=== PATIENT | female | born 1945 | race Caucasian/White ===

== ENCOUNTER 2016-09-22 17:35 | Inpatient (IN) | payer MEDICARE, OTHER ==
[~2016-09-22 17:35] MED LIST: ASPIR 8181 MG; ASPIRIN325 MG; ASPIRIN81 M1 PO; CATAPRES0.1 M1 PO; CATAPRES0.2 MG; CATAPRES0.3 M1 PO; CEPHALEXIN500 MG; COMBIVENT RESPIM4 G1 INH; COREG25 M1 PO; COREG6.25 M1 PO; COZAAR50 M1 PO; CPAP; FISH OIL 1,0001 EA10 PO; GLIPIZIDE5 MG; GLUCOPHAGE500 MG; GLUCOSE1 EACH PO; HUMALOG100 UNIT/2 SQ; HYDRALAZINE HCL50 M1 PO; LANTUS SOL100 UNIT/1 SC; LANTUS100 UNITS/ SC; LASIX40 M1 PO; LEVEMIR100 UNITS/ SC; LEVOFLOXACIN500 M1 PO; LIPITOR10 MG; LIPITOR20 M1 PO; LYRICA25 MG/CAP NG; LYRICA75 MG/CAP PO; MUPIROCIN15 G2 TOP; NORCO 5-325 TA1 EACH PO; NORVASC10 M2 PO; NORVASC10 MG; NOVOLIN N100 UNIT/2 SC; NOVOLOG FL100 UNIT/2 SC; NOVOLOG100 UNIT/2 SQ; PLAVIX75 MG; RENVELA800 M1 PO; SPIRONOLACTONE25 M2 PO; SYMBICORT 160-1 PUFF INH; TYLENOL325 M2 PO
[2016-09-22] MEDS ORDERED: TYLENOL325 M2 PO (18:46)
[2016-09-22] MEDS ORDERED: ASPIRIN EC325 M1 PO (18:47)
[2016-09-22] MEDS ORDERED: LIPITOR80 M1 PO (18:48)
[2016-09-22] MEDS ORDERED: COREG6.25 M1 PO (18:48)
[2016-09-22] MEDS ORDERED: FEOSOL325 M1 PO (18:50)
[2016-09-22] MEDS ORDERED: LASIX40 M1 PO (18:52)
[2016-09-22] MEDS ORDERED: FISH OIL 11000 MG/CA PO (18:53)
[2016-09-22] MEDS ORDERED: MEGACE400 MG/11 PO (18:54)
[2016-09-22] MEDS ORDERED: LYRICA100 MG/CAP PO (18:54)
[2016-09-22] MEDS ORDERED: PLAVIX75 M1 PO (18:55)
[2016-09-22] MEDS ORDERED: RENVELA800 M1 PO (18:56)
[2016-09-22] MEDS ORDERED: ADALAT CC30 M1 PO (18:59)
[2016-09-22] MEDS ORDERED: LANTUS SOL100 UNIT/1 SC (19:00)
[2016-09-22] MEDS ORDERED: NOVOLIN N100 UNIT/2 SC ×3 (19:03→19:06)
[2016-09-22] MEDS ORDERED: NOVOLOG100 UNITS/ SC (19:10)
[2016-09-22] MEDS ORDERED: GENTAMICIN SUL3.5 GM TOP (19:11)
[2016-09-22] MEDS ORDERED: PREDNISOLONE ACE5 M1 RIGHT EYE (19:13)
[2016-09-22] MEDS ORDERED: COMBIGAN EYE DRO5 M1 RIGHT EYE (19:14)
[2016-09-22] MEDS ORDERED: XALATAN2.5 M1 RIGHT EYE (19:16)
[2016-09-22 22:20] LABS: BASO % 0.1 % (0-2); EOS % 3.2 % (0-7); EOSINOPHIL ABSOLUTE COUNT 0.2 tho/cmm (0.0-0.7); HCT-HEMATOCRIT 28.6 % (34.0-49.0); HGB-HEMOGLOBIN 9.4 gm/dl (12.0-15.5); IMMATURE GRANULOCYTES ABSOLUTE 0.02 tho/cmm (0-0.03); IMMATURE GRANULOCYTES PERCENT 0.3 % (0-0.3); LYMPH ABSOLUTE COUNT 0.8 tho/cmm (0.8-4.5); MCHC MEAN CORPUSCULAR HGB CONC 32.9 % (32.0-36.0); MCV (MEAN CELL VOLUME) 100.4 fl (82.0-96.0); MEAN PLATELET VOLUME 10.5 cmc (9.4-12.4); MONO % 9.2 % (0-12); MONOCYTE ABSOLUTE COUNT 0.7 tho/cmm (0.0-1.2); NEUTROPHIL ABSOLUTE COUNT 5.9 tho/cmm (1.6-8.0); NEUTROPHIL-AUTOMATED 5.9 tho/cmm (1.6-8.0); NEUTROPHILS % 77.2 % (40-80); PLATELET COUNT 114 tho/cmm (150-450); RED BLOOD COUNT 2.85 mil/cmm (4.00-5.20); RED CELL DISTRIBUTION WIDTH 15.4 % (12.4-16.4); WHITE BLOOD COUNT 7.6 tho/cmm (4.0-10.0)
[2016-09-22 22:42] LABS: ALB/GLOB RATIO 0.7 (0.8-2.0); ALBUMIN 2.5 g/dl (3.5-5.0); ALKALINE PHOSPHATASE 98 U/L (33-138); ALT/SGPT 11 U/L (12-78); ANION GAP 15 mmol/L (0-20); AST/SGOT 14 U/L (10-40); BILIRUBIN,TOTAL 0.3 mg/dl (0-1.5); BLOOD UREA NITROGEN 57 mg/dl (6-24); C-REACTIVE PROTEIN 2.9 mg/dl (0-0.9); CALCIUM 8.5 mg/dl (8.5-10.5); CARBON DIOXIDE-VENOUS 28 mmol/L (22-32); CHLORIDE 104 mmol/l (96-110); GLUCOSE 101 mg/dL (70-110); POTASSIUM 3.5 mmol/L (3.7-5.1); SODIUM 143 mmol/L (135-145); eGFR VALUE FOR BLACK 7 mL/Min
[2016-09-22 22:59] LABS: PROCALCITONIN 0.31 ng/ml (0.05-0.09)
[2016-09-22 23:29] LABS: ESR-ERYTHROCYTE SED RATE 131 mm/hr (0-30)
[2016-09-23 04:11] LABS: BASO % 0.3 % (0-2); EOS % 4.2 % (0-7); EOSINOPHIL ABSOLUTE COUNT 0.3 tho/cmm (0.0-0.7); HCT-HEMATOCRIT 30.5 % (34.0-49.0); HGB-HEMOGLOBIN 9.9 gm/dl (12.0-15.5); IMMATURE GRANULOCYTES ABSOLUTE 0.03 tho/cmm (0-0.03); IMMATURE GRANULOCYTES PERCENT 0.4 % (0-0.3); LYMPH % 12.8 % (20-45); MCH (MEAN CORPUSCULAR HGB) 32.8 pg (28.0-32.0); MCHC MEAN CORPUSCULAR HGB CONC 32.5 % (32.0-36.0); MEAN PLATELET VOLUME 10.9 cmc (9.4-12.4); MONO % 8.3 % (0-12); MONOCYTE ABSOLUTE COUNT 0.7 tho/cmm (0.0-1.2); NEUTROPHIL ABSOLUTE COUNT 5.8 tho/cmm (1.6-8.0); NEUTROPHIL-AUTOMATED 5.8 tho/cmm (1.6-8.0); PLATELET COUNT 131 tho/cmm (150-450); RED BLOOD COUNT 3.02 mil/cmm (4.00-5.20); RED CELL DISTRIBUTION WIDTH 15.6 % (12.4-16.4); WHITE BLOOD COUNT 7.8 tho/cmm (4.0-10.0)
[2016-09-23 04:32] LABS: ALBUMIN 2.5 g/dl (3.5-5.0); ANION GAP 14 mmol/L (0-20); BLOOD UREA NITROGEN 57 mg/dl (6-24); CALCIUM 8.6 mg/dl (8.5-10.5); CARBON DIOXIDE-VENOUS 29 mmol/L (22-32); CHLORIDE 103 mmol/l (96-110); CREATININE 6.19 mg/dl (0.50-1.10); GLUCOSE 145 mg/dL (70-110); PHOSPHOROUS 5.1 mg/dl (2.5-4.9); POTASSIUM 3.5 mmol/L (3.7-5.1); SODIUM 142 mmol/L (135-145); eGFR VALUE FOR BLACK 7 mL/Min
[2016-09-23] MEDS ORDERED: COREG6.25 M1 PO (14:19)
[2016-09-23] MEDS ORDERED: NOVOLOG100 UNITS/ SC (14:23)
[2016-09-23 16:11] LABS: BODY FLUID APPEARANCE CLEAR (CLEAR); BODY FLUID COLOR COLORLESS (COLORLESS); BODY FLUID RBC COUNT <1000 cmm (0); BODY FLUID TYPE PERITONEAL; BODY FLUID VOLUME 2000 ml; BODY FLUID WBC COUNT 27 cmm
[2016-09-23 18:19] LABS: BODY FLUID LYMPHOCYTES 6 %; BODY FLUID MACROPHAGES 55 %; BODY FLUID MESOTHELIAL CELLS 2 %; BODY FLUID NEUTROPHILS 37 %
[2016-09-24 05:51] LABS: BASO % 0.2 % (0-2); EOS % 4.6 % (0-7); EOSINOPHIL ABSOLUTE COUNT 0.3 tho/cmm (0.0-0.7); IMMATURE GRANULOCYTES ABSOLUTE 0.02 tho/cmm (0-0.03); IMMATURE GRANULOCYTES PERCENT 0.3 % (0-0.3); LYMPH ABSOLUTE COUNT 0.7 tho/cmm (0.8-4.5); MCHC MEAN CORPUSCULAR HGB CONC 33.3 % (32.0-36.0); MCV (MEAN CELL VOLUME) 98.9 fl (82.0-96.0); MEAN PLATELET VOLUME 10.5 cmc (9.4-12.4); MONO % 9.1 % (0-12); MONOCYTE ABSOLUTE COUNT 0.5 tho/cmm (0.0-1.2); NEUTROPHIL ABSOLUTE COUNT 4.3 tho/cmm (1.6-8.0); NEUTROPHIL-AUTOMATED 4.3 tho/cmm (1.6-8.0); NEUTROPHILS % 73.8 % (40-80); PLATELET COUNT 112 tho/cmm (150-450); RED BLOOD COUNT 2.73 mil/cmm (4.00-5.20); RED CELL DISTRIBUTION WIDTH 15.3 % (12.4-16.4); WHITE BLOOD COUNT 5.8 tho/cmm (4.0-10.0)
[2016-09-24 06:18] LABS: ALBUMIN 2.5 g/dl (3.5-5.0); ANION GAP 13 mmol/L (0-20); BLOOD UREA NITROGEN 56 mg/dl (6-24); CALCIUM 8.6 mg/dl (8.5-10.5); CARBON DIOXIDE-VENOUS 29 mmol/L (22-32); CHLORIDE 100 mmol/l (96-110); CREATININE 5.88 mg/dl (0.50-1.10); GLUCOSE 126 mg/dL (70-110); PHOSPHOROUS 5.3 mg/dl (2.5-4.9); POTASSIUM 3.4 mmol/L (3.7-5.1); SODIUM 139 mmol/L (135-145); eGFR VALUE FOR BLACK 8 mL/Min
[2016-09-24 16:05] LABS: BODY FLUID APPEARANCE CLEAR (CLEAR); BODY FLUID COLOR COLORLESS (COLORLESS); BODY FLUID RBC COUNT <1000 cmm (0); BODY FLUID TYPE DIALYSATE; BODY FLUID WBC COUNT 25 cmm
[2016-09-24 16:06] LABS: BODY FLUID VOLUME 2000 ml
[2016-09-25 04:48] LABS: BASO % 0.2 % (0-2); EOS % 3.4 % (0-7); EOSINOPHIL ABSOLUTE COUNT 0.2 tho/cmm (0.0-0.7); HCT-HEMATOCRIT 26.3 % (34.0-49.0); IMMATURE GRANULOCYTES ABSOLUTE 0.03 tho/cmm (0-0.03); IMMATURE GRANULOCYTES PERCENT 0.5 % (0-0.3); LYMPH % 8.3 % (20-45); LYMPH ABSOLUTE COUNT 0.5 tho/cmm (0.8-4.5); MCH (MEAN CORPUSCULAR HGB) 33.3 pg (28.0-32.0); MCHC MEAN CORPUSCULAR HGB CONC 34.2 % (32.0-36.0); MCV (MEAN CELL VOLUME) 97.4 fl (82.0-96.0); MEAN PLATELET VOLUME 10.2 cmc (9.4-12.4); MONO % 10.1 % (0-12); MONOCYTE ABSOLUTE COUNT 0.6 tho/cmm (0.0-1.2); NEUTROPHIL ABSOLUTE COUNT 4.8 tho/cmm (1.6-8.0); NEUTROPHIL-AUTOMATED 4.8 tho/cmm (1.6-8.0); NEUTROPHILS % 77.5 % (40-80); PLATELET COUNT 106 tho/cmm (150-450); RED CELL DISTRIBUTION WIDTH 15.1 % (12.4-16.4); WHITE BLOOD COUNT 6.2 tho/cmm (4.0-10.0)
[2016-09-25 05:10] LABS: ALBUMIN 2.4 g/dl (3.5-5.0); ANION GAP 13 mmol/L (0-20); BLOOD UREA NITROGEN 51 mg/dl (6-24); CALCIUM 8.4 mg/dl (8.5-10.5); CARBON DIOXIDE-VENOUS 29 mmol/L (22-32); CHLORIDE 100 mmol/l (96-110); CREATININE 5.39 mg/dl (0.50-1.10); GLUCOSE 151 mg/dL (70-110); PHOSPHOROUS 4.9 mg/dl (2.5-4.9); POTASSIUM 3.6 mmol/L (3.7-5.1); SODIUM 138 mmol/L (135-145); eGFR VALUE FOR BLACK 9 mL/Min
[2016-09-25] MEDS ORDERED: NYSTATIN1 EA10 TOP (11:27)
[2016-09-25] MEDS ORDERED: NYSTATIN15 G1 TP (11:28)
[2016-09-25] MEDS ORDERED: RIFAMPIN300 M1 PO (11:38)
[2016-09-25] MEDS ORDERED: VANCOMYCIN HCL500 MG OTHER (11:45)
== END 2016-09-25 14:15 | DRG 919 ==
LOC: 5WE 17:35
PROVIDERS: Internal Medicine; Registered Nurse; ADMIT Family Medicine
PROC: 3E1M39Z Irrigation of Peritoneal Cavity using Dialysate, Percutaneous Approach (ICD-10-PCS; principal; 2016-09-22)
PROC: 5A09357 Assistance with Respiratory Ventilation, Less than 24 Consecutive Hours, Continuous Positive Airway Pressure (ICD-10-PCS; 2016-09-22)
DX: T85.71XA Infection and inflammatory reaction due to peritoneal dialysis catheter, initial encounter (principal); K65.9 Peritonitis, unspecified; I13.2 Hypertensive heart and chronic kidney disease with heart failure and with stage 5 chronic kidney disease, or end stage renal disease; N18.6 End stage renal disease; D69.6 Thrombocytopenia, unspecified; E11.21 Type 2 diabetes mellitus with diabetic nephropathy; E11.22 Type 2 diabetes mellitus with diabetic chronic kidney disease; I50.32 Chronic diastolic (congestive) heart failure; I27.2 Other secondary pulmonary hypertension; B95.7 Other staphylococcus as the cause of diseases classified elsewhere; D63.1 Anemia in chronic kidney disease; Z99.2 Dependence on renal dialysis; I25.2 Old myocardial infarction; E78.5 Hyperlipidemia, unspecified; M19.90 Unspecified osteoarthritis, unspecified site; I25.10 Atherosclerotic heart disease of native coronary artery without angina pectoris; Z95.5 Presence of coronary angioplasty implant and graft; H40.9 Unspecified glaucoma; E66.9 Obesity, unspecified; G47.33 Obstructive sleep apnea (adult) (pediatric); Z87.891 Personal history of nicotine dependence; Z88.2 Allergy status to sulfonamides; Z88.8 Allergy status to other drugs, medicaments and biological substances; Z91.040 Latex allergy status; Z79.82 Long term (current) use of aspirin; Z79.02 Long term (current) use of antithrombotics/antiplatelets; I34.0 Nonrheumatic mitral (valve) insufficiency; R01.1 Cardiac murmur, unspecified; Z86.73 Personal history of transient ischemic attack (TIA), and cerebral infarction without residual deficits; I25.5 Ischemic cardiomyopathy
CPT/HCPCS: J1644; J1815; J3370